=== PATIENT | male | born 1970 | race Caucasian/White ===

== ENCOUNTER 2019-09-30 16:07 | Emergency (ER) | payer OTHER ==
[~2019-09-30] VITALS: Ht 185.4 cm; Wt 164.0 kg
--- NOTE | 2019-09-30 16:23 | NUR ---
TO ED ROOM PER WC. DR OVALLE BS FOR EXAM. EKG AT BS. PT A&OX4. DENIES DYSPNEA, BUT REPORTS SOB SINCE SURGERY. SLIGHT DIZZINESS W/ LYING DOWN. STATES HE'S HERE FOR DIZZINESS. PRECISION ASSEMBLER BENCH APPLIED. REPEAT EKG DONE
[2019-09-30] MEDS ORDERED: SODIUM CHLORIDE FLUSH 10ML SYR IVF ONE (16:30)
[2019-09-30] MEDS ORDERED: ASPIRIN 81 MG TABLET CHEW PO ONE (16:30)
[2019-09-30] MEDS ORDERED: NITROGLYCERIN SINGLE TAB 0.4 MG SL PRN (16:30)
[2019-09-30] MEDS ORDERED: NITROGLYCERIN SINGLE TAB 0.4 MG SL ONE (16:33)
[2019-09-30] MEDS ORDERED: ASPIRIN 81 MG TABLET EC ONE (16:33)
[2019-09-30 16:52] LABS: BASOPHILS # (AUTO) 0.04 x10^3/uL (0-0.1); BASOPHILS % (AUTO) 1 % (0-1); EOSINOPHILS # (AUTO) 0.09 x10^3/uL (0-0.4); EOSINOPHILS % (AUTO) 1 % (1-7); LYMPHOCYTES # (AUTO) 2.48 x10^3/uL (1-3.4); LYMPHOCYTES % (AUTO) 36 % (22-44); MD NO; MEAN CORPUSCULAR HEMOGLOBIN 32.8 pg (27.5-34.5); MEAN CORPUSCULAR HGB CONC 33.1 g/dL (33.2-36.2); MEAN CORPUSCULAR VOLUME 98.9 fL (81-97); MEAN PLATELET VOLUME 7.9 fL (7.4-10.4); MONOCYTES # (AUTO) 0.55 x10^3/uL (0.2-0.8); MONOCYTES % (AUTO) 8 % (2-9); NEUTROPHILS # (AUTO) 3.67 x10^3/uL (1.8-6.8); NEUTROPHILS % (AUTO) 54 % (42-75); PLATELET COUNT 366 x10^3/uL (130-400); RED CELL DISTRIBUTION WIDTH 13.9 % (9.4-14.8)
[2019-09-30 17:03] LABS: ALANINE AMINOTRANSFERASE 22 U/L (12-78); ALBUMIN 3.7 g/dL (3.4-5.0); ANION GAP 8 mmol/L (5-15); CALCIUM 8.9 mg/dL (8.5-10.1); CHLORIDE 104 mmol/L (98-107); CREATININE 0.94 mg/dL (0.7-1.3)
[2019-09-30 17:08] LABS: ALKALINE PHOSPHATASE 84 U/L (45-117); BILIRUBIN,TOTAL 0.5 mg/dL (0.2-1.0); TOTAL PROTEIN 7.8 g/dL (6.4-8.2); TROPONIN I < 0.015 ng/mL (0.000-0.045)
--- NOTE | 2019-09-30 17:25 | NUR ---
PT ENDORSED TO BREAK RN: PATEL.
[2019-09-30] MEDS ORDERED: OMNIPAQUE 350 MG/ML, 100ML BOTTLE ONE ×2 (17:38→17:55)
--- NOTE | 2019-09-30 18:12 | NUR ---
PT REPORT FROM VANESA SWEENEY RN. PT CARE TO BE ASSUMED.
[2019-09-30] MEDS ORDERED: APIX5TAB PO (19:02)
[2019-09-30] MEDS ORDERED: MELOXICAM PO (19:03)
[2019-09-30] MEDS ORDERED: OXYC-307 PO (19:04)
[2019-09-30] MEDS ORDERED: MECLIZINE CHEWABLE 25 MG TAB PO ONE (19:30)
[2019-09-30] MEDS ORDERED: MECLIZINE CHEWABLE 25 MG TAB ONE (19:57)
--- NOTE | 2019-09-30 20:26 | NUR ---
ANTIVERT GIVEN. PT REQUESTING PAIN MED FOR KNEE. ERP WILL BE NOTIFIED.
--- NOTE | 2019-09-30 20:46 | NUR ---
AMBULATORY TO & FROM [facility] W/OUT INCIDENT; WEIGHT-BEARING USING OWN CRUTCHES.
--- NOTE | 2019-09-30 21:03 | NUR ---
DR OVALLE BS
[2019-09-30] MEDS ORDERED: OXYcodone/APAP 5/325MG TABLET ONE (21:51)
[2019-09-30 21:55] VITALS: BP 128/90
[2019-09-30] MEDS ORDERED: OXYcodone/APAP 5/325MG TABLET PO ONE (22:00)
== END 2019-09-30 22:08 | disposition home or self-care (01) ==
LOC: ED 16:30
DX: I82.4Z2 Acute embolism and thrombosis of unspecified deep veins of left distal lower extremity (principal); R42 Dizziness and giddiness; I10 Essential (primary) hypertension; Z90.89 Acquired absence of other organs; Z86.711 Personal history of pulmonary embolism
CPT/HCPCS: 36415; 71275; 80053; 83735; 84484; 85025; 93005; 99285; Q9967